=== PATIENT | male | born 1945 | race Caucasian/White ===

== ENCOUNTER → 2018-09-16 | Outpatient (CLI) | payer OTHER ==
[2014-12-07 11:00] VITALS: BP 133/73
[~2018-09-16] MED LIST: ASPI325T70 PO; ATORVASTATIN CA80 MG PO; GLIP-26 PO; IOHEXOL 240 MG/ML 50ML VIAL. PO ONE; IOHEXOL 300 MG/ML 100ML VIAL. IV ONE; LEVO750T31 PO; LISI-334 PO; METF500T9 PO; METO-239 PO
--- NOTE | 2018-09-16 10:24 | KCIC ---
PQRS Compliance statement: One or more of the following individualized dose reduction techniques were utilized for this examination: 1. Automated exposure control. 2. Adjustment of the mA and/or kV according to patient size. 3. Use of iterative reconstruction technique. Indication:Ventral hernia. Right lower quadrant pain. TECHNIQUE: CT abdomen and pelvis with IV contrast with multiplanar reformats. COMPARISON: None FINDINGS: Heart is normal in size. No pericardial or pleural effusion. Clear lung bases. Diffuse hepatic steatosis. Gallstones noted. No pericholecystic inflammatory changes or fluid. Spleen, pancreas, adrenals and kidneys are within normal limits. No free pelvic fluid or ascites. The prostate and seminal vesicles show no large mass. Sigmoid diverticulosis. No bowel obstruction. No evidence of abdominal hernia. Urinary bladder is within normal limits. Mild diffuse atherosclerotic disease of the abdominal aorta and bilateral iliac arteries. No pneumoperitoneum. No suspicious bony lesion. IMPRESSION: 1. No evidence of hernia. No bowel obstruction. 2. Cholelithiasis without imaging evidence of acute cholecystitis. 3. Hepatic steatosis. Electronically signed by: Agustin Sheriff DO (09/16/2018 10:21 AM) [facility]
== END | disposition home or self-care (01) ==
LOC: KCIC CT 08:06
PROVIDERS: ATTEND Surgery
DX: K80.20 Calculus of gallbladder without cholecystitis without obstruction (principal); K76.0 Fatty (change of) liver, not elsewhere classified; K43.9 Ventral hernia without obstruction or gangrene
CPT/HCPCS: 74177; 82565; Q9966; Q9967